=== PATIENT | female | born 1960 ===

== ENCOUNTER 2017-06-20 16:32 | Emergency (ER) | payer MEDICAID ==
[2017-06-20 16:33] VITALS: BMI 22.4
[2017-06-20 16:52] VITALS: BP 144/83; PULSE 70; RESP 18; TEMP 97.9; O2SAT 98
--- NOTE | 2017-06-20 17:35 | ED PDOC ---
HPI: General Adult Time Seen by Provider: 06/20/17 17:16 Chief Complaint (Nursing): Upper Extremity Problem/Injury Chief Complaint (Provider): neck swelling History Per: Patient History/Exam Limitations: no limitations Onset/Duration Of Symptoms: Days Have you had recent travel within the past 21 days to any of the following countries: [place], [place], [place] or [place]?: No Current Symptoms Are (Timing): Still Present Severity: Moderate Similar Symptoms Previously: Denies Recent Trauma: Denies Additional Complaint(s): 57 y/o F with no significant PMHx presents referred from her PMD with c/o neck swelling and neck pain. Patient states she has had diffuse neck pain for the past 1 month and recently noticed a r/side neck swelling on ' day. Denies numbness, diaphoresis, vision changes, cough, fever, wt loss, anorexia, abd pain, vomiting, SOB or CP. Neck pain is diffuse and difficult to control with PRN tylenol and because of this she is having trouble to sleep at night and feels tired. Denies sick contacts, Hx of TB or contact with TB patient. Born in [facility] and moved to country more than 20 y/a. Past Medical History Reviewed: Nursing Documentation, Vital Signs Vital Signs: Last Vital Signs Temp 97.9 F 06/20/17 16:48 Pulse 70 06/20/17 16:48 Resp 18 06/20/17 16:48 BP 144/83 06/20/17 16:48 Pulse Ox 98 06/20/17 21:34 - Medical History PMH: Depression (NO MED), Diverticulitis, Hypercholesterolemia (NO MED) Denies: Chronic Kidney Disease - Surgical History Surgical History: Endoscopy - Family History Family History: States: Unknown Family Hx - Social History Current smoker - smoking cessation education provided: No Alcohol: Occasional Drugs: Denies - Home Medications Home Medications: Ambulatory Orders Medication Instructions Recorded Cefdinir [Omnicef] 300 mg PO BID #20 cap 02/24/16 Phenazopyridine HCl [Pyridium] 200 mg PO TID #6 tablet 02/24/16 traMADol [Ultram] 50 mg PO Q8 PRN #12 tab 02/24/16 - Allergies Allergies/Adverse Reactions: Allergies Allergy/AdvReac Type Severity Reaction Status Date / Time aspirin AdvReac ANAPHYLAXIS Verified 08/07/15 08:03 seafood Allergy ANAPHYLAXIS Uncoded 02/24/16 17:09 Review of Systems ROS Statement: Except As Marked, All Systems Reviewed And Found Negative Constitutional: Positive for: Weakness Musculoskeletal: Positive for: Neck Pain (Right supraclavicular swelling) Physical Exam - Reviewed Nursing Documentation Reviewed: Yes Vital Signs Reviewed: Yes - Physical Exam Appears: Positive for: Well, Non-toxic, No Acute Distress Head Exam: Positive for: ATRAUMATIC Skin: Positive for: Normal Color, Warm Eye Exam: Positive for: Normal appearance, EOMI, PERRL ENT: Negative for: Sinus Pain/Drainage, Nasal Congestion, Pharyngeal Erythema, Tonsillar Exudate Neck: Positive for: Pain On Movement Of Neck. Negative for: Supple (B/L swelling supraclavicular more evident seen with valsalva maneuver. No erythema or discoloration. No tenderness), Decreased ROM Cardiovascular/Chest: Positive for: Regular Rate, Rhythm. Negative for: Edema, Gallop Respiratory: Positive for: Normal Breath Sounds. Negative for: Crackles, Rales , Rhonchi, Wheezing Gastrointestinal/Abdominal: Positive for: Soft. Negative for: Tenderness, Guarding, Rebound Extremity: Negative for: Tenderness, Pedal Edema, Calf Tenderness, Swelling Neurologic/Psych: Positive for: Alert, Oriented - Laboratory Results Result Diagrams: 06/20/17 17:48 06/20/17 17:48 - ECG O2 Sat by Pulse Oximetry: 98 Medical Decision Making Medical Decision Making: B/L supraclavicular swelling/Neck pain R/O malignancy and infectious cause F/U CBC, CMP F/U CT neck and CT chest Disposition - Clinical Impression Clinical Impression: Neck pain - Patient ED Disposition Is Patient to be Admitted: No - Disposition Referrals: Josh Alfredo MD [IM] - Disposition Time: 19:00 Condition: GOOD Additional Instructions: Follow up with your PCP in 2-3 days. Instructions: Lymphadenopathy (ED) Forms: [employer] ([place]ovenian) Patient Signed Over To: Arturo Velazquez
[2017-06-20 18:17] LABS: BASO # 0.1 K/uL (0.0-0.2); BASO % 1.1 % (0.0-2.0); EOS # 0.1 K/uL (0.0-0.7); EOS % 1.7 % (0.0-4.0); HEMATOCRIT 42.4 % (34.0-47.0); LYMPH # 2.3 K/uL (1.0-4.3); LYMPH % 39.8 % (20.0-40.0); MEAN CELL VOLUME 96.5 fl (81.0-99.0); MEAN CORPUSCULAR HEMOGLOBIN 32.3 pg (27.0-31.0); MEAN CORPUSCULAR HGB CONC 33.5 g/dL (33.0-37.0); MEAN PLATELET VOLUME 9.6 fl (7.2-11.7); MONO # 0.6 K/uL (0.0-0.8); NEUT # 2.7 K/uL (1.8-7.0); NEUT % 47.4 % (50.0-75.0); RED CELL DISTRIBUTION WIDTH 12.6 % (11.5-14.5); WHITE BLOOD COUNT 5.7 K/uL (4.8-10.8)
[2017-06-20 18:27] LABS: ALB/GLOB RATIO 1.3 (1.0-2.1); ALKALINE PHOSPHATASE 124 U/L (38-126); ALT/SGPT 54 U/L (9-52); AST/SGOT 43 U/L (14-36); BILIRUBIN,TOTAL 0.9 mg/dl (0.2-1.3); BLOOD UREA NITROGEN 7 mg/dl (7-17); CALCIUM 9.5 mg/dL (8.4-10.2); CARBON DIOXIDE 29 mmol/L (22-30); CHLORIDE 104 mmol/L (98-107); GFR AFRICAN-AMERICAN > 60; GLUCOSE,RANDOM 134 mg/dL (65-105); SODIUM 139 mmol/l (132-148); TOTAL PROTEIN 8.7 G/DL (6.3-8.2)
[2017-06-20] MEDS ORDERED: Iodixanol 320 MG/ML 100 ML BOTTLE IV ONE (19:22)
[2017-06-20] MEDS ORDERED: Sodium Chloride 0.9% 50 ML IV ONE (19:22)
--- NOTE | 2017-06-20 19:32 | ED PDOC ---
- Laboratory Results Result Diagrams: 06/20/17 17:48 06/20/17 17:48 - ECG O2 Sat by Pulse Oximetry: 98 (RA) Pulse Ox Interpretation: Normal Medical Decision Making Medical Decision Making: Time: 19:00 --transfer of care endorsed by Dr. Alfonso Choi MD --reevaluation for final disposition Time: 19:42 --Benadryl 25 mg IV Time: 20:07 --Benadryl 25 mg IV Time: 20:08 CT Chest and neck FINDINGS: Nasopharynx: Unremarkable. Oropharynx: Unremarkable. No significant tonsillar enlargement. No peritonsillar abscess. Hypopharynx: Unremarkable. Larynx: Unremarkable. Normal epiglottis. Trachea: Patent. Retropharyngeal space: Unremarkable. Submandibular/parotid glands: Glands are normal in size. Thyroid: Unremarkable. No enlarged or calcified nodules. Bones/joints: No acute fracture. Soft tissues: Symmetric. Vasculature: No acute findings. Lymph nodes: Unremarkable. No pathologically enlarged lymph nodes. Lung apices: Unremarkable as visualized. IMPRESSION: No significant pathology detected within the soft tissues of the neck, as detailed above. 04.11 History and exam findings reviewed. Labs and CT reviewed. Hospitalist Dr Russo updated on status. There are no criteria for observation or admission at this time. Patient does not qualify for inpatient admission. Scribe Attestation: Documented by Ludy Velasco, acting as a scribe for Arturo Velazquez MD Provider Scribe Attestation: All medical record entries made by the Scribe were at my direction and personally dictated by me. I have reviewed the chart and agree that the record accurately reflects my personal performance of the history, physical exam, medical decision making, and the department course for this patient. I have also personally directed, reviewed, and agree with the discharge instructions and disposition Disposition Doctor Will See Patient In The: Office Counseled Patient/Family Regarding: Studies Performed, Diagnosis, Need For Followup - Clinical Impression Clinical Impression: Neck pain - POA Present On Arrival: None - Disposition Referrals: Josh Alfredo MD [IM] - Disposition: Routine/Home Disposition Time: 21:26 Condition: GOOD Additional Instructions: Follow up with your PCP in 2-3 days. Instructions: Lymphadenopathy (ED) Forms: [employer] ([place])
[2017-06-20] MEDS ORDERED: DiphenhydrAMINE 50 mg/ml Inj IV STA ×2 (19:42→20:07)
[2017-06-20] MEDS ORDERED: DiphenhydrAMINE 50 mg/ml Inj ONE (19:50)
--- NOTE | 2017-06-20 20:14 | CT ---
EXAM: CT Neck With Intravenous Contrast CLINICAL HISTORY: 57 years old, female; Signs and symptoms; Other: B/l supreclaviclar swelling; Mass, lump, or swelling in neck; Additional info: B/l supraclavicular swelling TECHNIQUE: Axial computed tomography images of the neck with intravenous contrast. All CT scans at this facility use one or more dose reduction techniques, viz.: automated exposure control; ma/kV adjustment per patient size (including targeted exams where dose is matched to indication; i.e. head); or iterative reconstruction technique. Coronal and sagittal reformatted images were created and reviewed. CONTRAST: 95 mL of [id number] administered intravenously. COMPARISON: No relevant prior studies available. FINDINGS: Nasopharynx: Unremarkable. Oropharynx: Unremarkable. No significant tonsillar enlargement. No peritonsillar abscess. Hypopharynx: Unremarkable. Larynx: Unremarkable. Normal epiglottis. Trachea: Patent. Retropharyngeal space: Unremarkable. Submandibular/parotid glands: Glands are normal in size. Thyroid: Unremarkable. No enlarged or calcified nodules. Bones/joints: No acute fracture. Soft tissues: Symmetric. Vasculature: No acute findings. Lymph nodes: Unremarkable. No pathologically enlarged lymph nodes. Lung apices: Unremarkable as visualized. IMPRESSION: No significant pathology detected within the soft tissues of the neck, as detailed above. EXAM: CT Chest With Intravenous Contrast CLINICAL HISTORY: 57 years old, female; Signs and symptoms; Other: B/l supreclaviclar swelling; Mass, lump, or swelling in neck; Additional info: B/l supraclavicular swelling TECHNIQUE: Axial computed tomography images of the chest with intravenous contrast. All CT scans at this facility use one or more dose reduction techniques, viz.: automated exposure control; ma/kV adjustment per patient size (including targeted exams where dose is matched to indication; i.e. head); or iterative reconstruction technique. Coronal and sagittal reformatted images were created and reviewed. CONTRAST: 95 mL of [id number] administered intravenously. COMPARISON: No relevant prior studies available. FINDINGS: Lungs: No mass. No consolidation. Pleural spaces: No significant effusion. No pneumothorax. Heart: No cardiomegaly. No significant pericardial effusion. Vasculature: No aortic aneurysm. No dissection. Lymph nodes: No pathologically enlarged lymph nodes. Minimally enlarged lymph nodes are identified within the bilateral cervical chains, a nonspecific finding. Bones: No acute fracture. IMPRESSION: Unremarkable contrast enhanced CT examination of the chest, as detailed.
== END 2017-06-20 22:27 | disposition home or self-care (01) ==
LOC: H.ER 16:32
DX: M54.2 Cervicalgia (principal)
CPT/HCPCS: 70491; 71260; 80053; 85025; 96374; 96376; 99283; J1200; Q9967

== ENCOUNTER 2018-05-22 20:55 | Emergency (ER) | payer MEDICAID ==
[2018-05-22 20:55] VITALS: BMI 22.4
[2018-05-22 22:02] VITALS: RESP 16; TEMP 97.7; O2SAT 97
[2018-05-22] MEDS ORDERED: Naproxen 500 MG TAB PO ONE (22:24)
[2018-05-22] MEDS ORDERED: Oxycodone/Acetaminophen 5/325 mg Tab PO ONE (22:25)
--- NOTE | 2018-05-22 22:28 | ED PDOC ---
HPI: General Adult Time Seen by Provider: 05/22/18 22:14 Chief Complaint (Nursing): Rib Injury Chief Complaint (Provider): right rib pain History Per: Patient History/Exam Limitations: no limitations Onset/Duration Of Symptoms: Hrs Current Symptoms Are (Timing): Still Present Additional Complaint(s): 58 y/o female history of osetoporosis presents for evaluation of right-sided rib pain x 5 hours. Patient states she was doing laundry and hand to lean far over to get to the bottom of the washing machine and felt three "cracks" on right side of her ribs. Patient reports pain with movement, and deep breaths since then. Denies chest pain, shortness of breath, palpitations, abdominal pain. No medication taken for relief thus far. Past Medical History Vital Signs: Last Vital Signs Temp 97.7 F 05/22/18 21:59 Pulse 82 05/22/18 21:59 Resp 16 05/22/18 21:59 BP 135/87 05/22/18 21:59 Pulse Ox 97 05/22/18 21:59 - Medical History PMH: Depression (NO MED), Diverticulitis, Hypercholesterolemia (NO MED), Osteoporosis Denies: Chronic Kidney Disease - Surgical History Surgical History: Endoscopy - Family History Family History: States: Unknown Family Hx - Home Medications Home Medications: Ambulatory Orders Medication Instructions Recorded Cefdinir [Omnicef] 300 mg PO BID #20 cap 02/24/16 Phenazopyridine HCl [Pyridium] 200 mg PO TID #6 tablet 02/24/16 traMADol [Ultram] 50 mg PO Q8 PRN #12 tab 02/24/16 traMADol [Ultram] 50 mg PO Q8 PRN #12 tab 05/22/18 - Allergies Allergies/Adverse Reactions: Allergies Allergy/AdvReac Type Severity Reaction Status Date / Time aspirin Allergy ANAPHYLAXIS Verified 05/22/18 21:59 shellfish derived Allergy ANAPHYLAXIS Verified 05/22/18 21:59 seafood Allergy ANAPHYLAXIS Uncoded 02/24/16 17:09 Review of Systems ROS Statement: Except As Marked, All Systems Reviewed And Found Negative Musculoskeletal: Positive for: Other (right rib pain) Physical Exam - Reviewed Nursing Documentation Reviewed: Yes Vital Signs Reviewed: Yes - Physical Exam Appears: Positive for: Well, Non-toxic, Uncomfortable Head Exam: Positive for: ATRAUMATIC, NORMAL INSPECTION, NORMOCEPHALIC Skin: Positive for: Normal Color Cardiovascular/Chest: Positive for: Regular Rate, Rhythm. Negative for: Chest Non Tender (tender to palpate anterior and lateral right 8-9 ribs. No edema, ecchymosis, flail chest noted) Respiratory: Positive for: Normal Breath Sounds Gastrointestinal/Abdominal: Positive for: Normal Exam Extremity: Positive for: Normal ROM Neurologic/Psych: Positive for: Alert, Oriented (x3) - ECG O2 Sat by Pulse Oximetry: 97 - Other Rad xray right ribs/chest X-Ray: Viewed By Ct X-Ray Interpretation: no acute findings - Progress ED Course And Treament: percocet po, ibuprofen PO (patient states she takes at home), xray right ribs/chest Incentive spirometer given to patient with instructions on use by respiratory therapist Patient educated on findings, discharged with rx Tramadol Advised follow up PMD within 2-3 days Return precautions given Disposition - Clinical Impression Clinical Impression: Contusion of rib on right side - Patient ED Disposition Is Patient to be Admitted: No Counseled Patient/Family Regarding: Studies Performed, Diagnosis, Need For Followup, Rx Given - Disposition Disposition: Routine/Home Disposition Time: 23:40 Condition: IMPROVED Prescriptions: traMADol [Ultram] 50 mg PO Q8 PRN #12 tab PRN Reason: Pain, Severe (8-10) Instructions: Bruised Rib
[2018-05-22] MEDS ORDERED: Oxycodone/Acetaminophen 5/325 mg Tab ONE (22:38)
[2018-05-23 00:06] VITALS: BP 133/83; PULSE 76
--- NOTE | 2018-05-23 10:43 | RAD ---
Date of service: 05/22/2018 PROCEDURE: Radiographs of the Chest and Right Ribs. HISTORY: injury, inferior/lateral rib pain COMPARISON: None available. TECHNIQUE: Frontal radiograph of the chest and multiple oblique radiographs of the right ribs were obtained. FINDINGS: RIGHT RIBS: No fracture or focal lesion visualized. LUNGS: No interval pulmonary disease appreciated bilaterally. PLEURA: No pneumothorax or pleural fluid. CARDIOVASCULAR: Normal cardiac size. No pulmonary vascular congestion. No aortic atherosclerotic calcification present OTHER FINDINGS: None. IMPRESSION: Unremarkable radiographs of the chest and right ribs. No right rib fracture.
== END 2018-05-22 23:55 | disposition home or self-care (01) ==
LOC: H.ER 20:55
DX: S20.211A Contusion of right front wall of thorax, initial encounter (principal); X50.1XXA Overexertion from prolonged static or awkward postures, initial encounter